=== PATIENT | male | born 1990 | race American Indian/Alaskan Native ===

== ENCOUNTER 2018-10-09 17:57 | Emergency (ER) | payer OTHER ==
[2018-10-09 18:07] VITALS: BP 133/81
[2018-10-09] MEDS ORDERED: TORADOL IM ONE (20:30)
--- NOTE | 2018-10-09 20:36 | Emergency Department Report ---
ED Back Pain/Injury HPI - General Chief Complaint: Back Pain/Injury Stated Complaint: BACK PAIN Time Seen by Provider: 10/09/18 20:30 Source: patient Limitations: No Limitations - History of Present Illness Initial Comments: 28-year-old -[place] male presents to the emergency room for lower back pain for a week. Patient denies any injury but reports that he lifts heavy objects at work daily. Patient reports he shoveled fan in the rocks. Patient is taking nothing for pain. Patient denies any trauma no falls. Patient has no past medical history currently takes no medications on a daily basis and has no known drug allergies. MD Complaint: back pain -: week(s) (1) Radiation: none Severity: moderate Quality: aching Consistency: intermittent Improves With: none Worsens With: none Context: while lifting Associated Symptoms: denies other symptoms Treatments Prior to Arrival: other (none) - Related Data Previous Rx's Medication Instructions Recorded Last Taken Type Naproxen 500 mg PO BID #14 tablet 10/09/18 Unknown Rx methOCARBAMOL [Robaxin TAB] 500 mg PO BID #14 tab 10/09/18 Unknown Rx Allergies Allergy/AdvReac Type Severity Reaction Status Date / Time No Known Allergies Allergy Unverified 10/09/18 17:58 ED Review of Systems ROS: Stated complaint: BACK PAIN Other details as noted in HPI Constitutional: no symptoms reported Eyes: as per HPI Respiratory: no symptoms reported Cardiovascular: denies: chest pain, palpitations Endocrine: no symptoms reported Gastrointestinal: denies: abdominal pain, nausea, diarrhea Genitourinary: denies: urgency, dysuria Musculoskeletal: back pain Skin: denies: rash, lesions Neurological: denies: headache, weakness, paresthesias ED Past Medical Hx - Past Medical History Previous Medical History?: No - Surgical History Additional Surgical History: acl - Social History Smoking Status: Current Every Day Smoker Substance Use Type: None - Medications Home Medications: Home Medications Medication Instructions Recorded Confirmed Last Taken Type Naproxen 500 mg PO BID #14 tablet 10/09/18 Unknown Rx methOCARBAMOL [Robaxin TAB] 500 mg PO BID #14 tab 10/09/18 Unknown Rx ED Physical Exam - General Limitations: No Limitations General appearance: alert, in no apparent distress - Head Head exam: Present: atraumatic, normocephalic - Eye Eye exam: Present: normal appearance - ENT ENT exam: Present: mucous membranes moist - Back Exam Back exam: Present: full ROM, muscle spasm, paraspinal tenderness - Neurological Exam Neurological exam: Present: alert, oriented X3 - Psychiatric Psychiatric exam: Present: normal affect, normal mood - Skin Skin exam: Present: warm, dry, intact, normal color. Absent: rash ED Course Vital Signs 10/09/18 18:06 Temperature 98.5 F Pulse Rate 71 Respiratory 16 Rate Blood Pressure 133/81 O2 Sat by Pulse 100 Oximetry ED Medical Decision Making - Medical Decision Making Patient reports to the emergency room for lower back pain for week after lifting heavy objects. Patient be given a Toradol injection for pain management. Patient be discharged home on naproxen and Robaxin and to follow-up with his primary care provider. Critical care attestation.: If time is entered above; I have spent that time in minutes in the direct care of this critically ill patient, excluding procedure time. ED Disposition Clinical Impression: Back pain Qualifiers: Back pain location: low back pain Back pain laterality: left Sciatica presence: without sciatica Disposition: - TO HOME OR SELFCARE Is pt being admited?: No Does the pt Need Aspirin: No Condition: Stable Instructions: Low Back Strain (ED) Additional Instructions: Take medication as needed for back pain. Do not operate heavy machinery while taking the Robaxin. Please increase her water intake while taking medication. If you back persists follow up with the primary care provider. I have listed one below for your convenience Prescriptions: Naproxen 500 mg PO BID #14 tablet methOCARBAMOL [Robaxin TAB] 500 mg PO BID #14 tab Referrals: [facility] [Provider Group] - 3-5 Days Forms: Work/School Release Form(ED)
== END 2018-10-09 20:42 | disposition home or self-care (01) ==
LOC: ED 17:57
DX: M54.5 Low back pain (principal); F17.200 Nicotine dependence, unspecified, uncomplicated
CPT/HCPCS: 96372; 99282; J1885